=== PATIENT | female | born 1990 | race Two or more races ===

== ENCOUNTER 2016-04-29 10:04 | Emergency (ER) | payer OTHER ==
[2016-04-29] MEDS ORDERED: MAG HYDROX/AL HYDROX/SIMETH 30 ML, HYOSCYAMINE ELIXIR 10 ML, CIMETIDINE HCL 300 MG PO STA ×3 (10:35)
--- NOTE | 2016-04-29 10:48 | ED ---
General Adult HPI - General Chief complaint: Abdominal Pain Stated complaint: Stomach pain Time Seen by Provider: 04/29/16 10:24 Source: patient, family, RN notes reviewed, old records reviewed Mode of arrival: ambulatory Limitations: no limitations - History of Present Illness Initial comments: Chief complaint and history of present illness a 26-year-old female who is hearing her history through an american sign language interpreter. The patient has had subxiphoid area discomfort for 2 days. No nausea no vomiting no diarrhea. No change in appetite. Pain in the area increases with palpation decreases with Tylenol. Increases with deep breathing coughing and movement. - Related Data Home Medications Medication Instructions Recorded Confirmed Acetaminophen Tab [Tylenol Tab] 500 mg PO Q4H PRN 04/29/16 04/29/16 Previous Rx's Medication Instructions Recorded Famotidine [Pepcid] 20 mg PO DAILY #30 tablet 04/29/16 Allergies Allergy/AdvReac Type Severity Reaction Status Date / Time No Known Allergies Allergy Verified 06/28/15 10:40 Review of Systems ROS Statement: Those systems with pertinent positive or pertinent negative responses have been documented in the HPI. Review of systems no visual acuity changes denies any headache chest pain reproducible with palpation and movement of the xiphoid region. No GI/ problems. She also reports the discomfort slightly worse with spicy foods. No nausea no vomiting no diarrhea no change in color stool. No neuro deficits complained of. All systems were otherwise reviewed. Past medical problems significant for cholelithiasis and cholecystitis. Her surgeries include 3 C-sections and a gallbladder removed with ERCP last year. The patient's family history no cancers. Patient denies ALLERGIES nonsmoker, nondrinker. ROS Other: All systems not noted in ROS Statement are negative. Past Medical History Past Medical History: No Reported History History of Any Multi-Drug Resistant Organisms: None Reported Past Surgical History: Section, Cholecystectomy Past Anesthesia/Blood Transfusion Reactions: No Reported Reaction Past Psychological History: No Psychological Hx Reported Smoking Status: Never smoker Past Alcohol Use History: None Reported Past Drug Use History: None Reported General Exam - General Exam Comments Initial Comments: General: The patient is awake and alert, in no distress, and does not appear acutely ill. Discomfort comes and goes but is reproducible by taking a deep breath twisting turning palpating around xiphoid. It can be controlled while coughing by pushing just in a pressure on the lower sternum. Vital signs show temperature 98.0 pulse 79 respiratory rate 17 pulse ox 98% room air blood pressure 126/78. Minimally elevated systolic of 126 noted. The patient will be following up with her family physician as needed in the next 1-2 weeks. Eye: Pupils are equal, round and reactive to light, extra-ocular movements are intact ; there is normal conjunctiva bilaterally. No signs of icterus. Ears, nose, mouth and throat: There are moist mucous membranes and no oral lesions. Neck: The neck is supple, there is no tenderness , no anterior cervical lymphadenopathy. Cardiovascular: There is a regular rate and rhythm. No murmur, rub or gallop is appreciated. Respiratory: Lungs are clear to auscultation, respirations are non-labored, breath sounds are equal. No wheezes, stridor, rales, or rhonchi. Reproducible discomfort with palpation over the xiphoid region. Gastrointestinal: Soft, non-distended, non-tender abdomen without masses or organomegaly noted. There is no rebound or guarding present. No CVA tenderness. Bowel sounds are unremarkable. Back: There is no tenderness to palpation in the midline. There is no obvious deformity. No rashes noted. Musculoskeletal: Normal ROM, no tenderness, There is no pedal edema. There is no calf tenderness or swelling. Sensation intact. Neurological: No complaint of any weakness or neuro deficits none noted on exam. Skin: Skin is warm and dry and no rashes or lesions are noted. Limitations: no limitations Course Vital Signs 04/29/16 10:16 Temperature 98.0 F Pulse Rate 79 Respiratory 17 Rate Blood Pressure 126/78 O2 Sat by Pulse 98 Oximetry Medical Decision Making - Medical Decision Making Medical decision making; patient's white count 6.2 hemoglobin 12 hematocrit 37.9 , potassium 4.1 with a BUN 12 creatinine 0.56 and GFR greater than 60. Glucose 83. Amylase lipase within normal limits. X-ray of the chest was done and reviewed by radiologist entire report was reviewed his final impression is no acute coronary process. As read by Dr. Yared palafox x-ray of the abdomen was done and reviewed by radiologist entire report was reviewed his impression is no abnormal air-fluid levels or differential air fluid levels present. No free air is present. No mass effect is evident. Impression unremarkable abdomen. As read by Dr. Root The patient was given a GI cocktail emergency room does states she feels somewhat better. We discussed costochondritis as she has discomfort in the lower rib cage and xiphoid region. And it is reproducible. She also complains of symptoms of start with spicy foods. The pain the patient will be advised to use antacids on a regular basis, 8 frequent small meals. Stay away from greasy fatty foods or spicy foods. Take Pepcid daily. If problem persists to follow- up with family physician. - Lab Data Result diagrams: 04/29/16 11:06 04/29/16 11:06 Lab Results 04/29/16 04/29/16 Range/Units 11:06 11:06 WBC 6.2 (3.8-10.6) k/uL RBC 4.48 (3.80-5.40) m/uL Hgb 12.5 (11.4-16.0) gm/dL Hct 37.9 (34.0-46.0) % MCV 84.7 (80.0-100.0) fL MCH 27.9 (25.0-35.0) pg MCHC 32.9 (31.0-37.0) g/dL RDW 12.6 (11.5-15.5) % Plt Count 243 (150-450) k/uL Neutrophils % 58 % Lymphocytes % 33 % Monocytes % 4 % Eosinophils % 2 % Basophils % 1 % Neutrophils # 3.6 (1.3-7.7) k/uL Lymphocytes # 2.1 (1.0-4.8) k/uL Monocytes # 0.3 (0-1.0) k/uL Eosinophils # 0.1 (0-0.7) k/uL Basophils # 0.0 (0-0.2) k/uL Sodium 141 (137-145) mmol/L Potassium 4.1 (3.5-5.1) mmol/L Chloride 107 (98-107) mmol/L Carbon Dioxide 24 (22-30) mmol/L Anion Gap 10 mmol/L BUN 12 (7-17) mg/dL Creatinine 0.56 (0.52-1.04) mg/dL Est GFR (MDRD) Af Amer >60 (>60 ml/min/1.73 sqM) Est GFR (MDRD) Non-Af >60 (>60 ml/min/1.73 sqM) Glucose 83 (74-99) mg/dL Calcium 9.3 (8.4-10.2) mg/dL Total Bilirubin 0.4 (0.2-1.3) mg/dL AST 20 (14-36) U/L ALT 32 (9-52) U/L Alkaline Phosphatase 120 (38-126) U/L Total Protein 7.8 (6.3-8.2) g/dL Albumin 4.0 (3.5-5.0) g/dL Amylase 39 (30-110) U/L Lipase 89 (23-300) U/L Disposition Clinical Impression: Gastritis, Costochondritis, acute Disposition: HOME SELF-CARE Condition: Fair Instructions: Diet for Stomach Ulcers and Gastritis (ED), Gastritis (ED), Costochondritis (ED) Additional Instructions: Use Tylenol for pain. Take Pepcid to control stomach acid production. Use antacids such as Mylanta or Tums for immediate relief. Decrease irritating foods. Use Tylenol for pain. Follow-up family physician Prescriptions: Famotidine [Pepcid] 20 mg PO DAILY #30 tablet Time of Disposition: 12:01
[2016-04-29 11:27] LABS: Basophils % (A) 1 %; CH 28.1; CHCM 33.3; Eosinophils # (A) 0.1 k/uL (0-0.7); Eosinophils % (A) 2 %; HCT 37.9 % (34.0-46.0); HDW 2.83; HGB 12.5 gm/dL (11.4-16.0); Luc # (Auto) 0.15; Luc % (Auto) 2; Lymphocytes # (A) 2.1 k/uL (1.0-4.8); Lymphocytes % (A) 33 %; MCH 27.9 pg (25.0-35.0); MCHC 32.9 g/dL (31.0-37.0); MCV 84.7 fL (80.0-100.0); Monocytes # (A) 0.3 k/uL (0-1.0); Monocytes % (A) 4 %; Neutrophils # (A) 3.6 k/uL (1.3-7.7); Neutrophils % (A) 58 %; RBC 4.48 m/uL (3.80-5.40); RDW 12.6 % (11.5-15.5); WBC 6.2 k/uL (3.8-10.6); WBC (Perox) 6.29
[2016-04-29 11:34] LABS: ALT 32 U/L (9-52); AST 20 U/L (14-36); Alkaline Phosphatase 120 U/L (38-126); Amylase 39 U/L (30-110); Anion Gap 10 mmol/L; Blood Urea Nitrogen 12 mg/dL (7-17); Calcium 9.3 mg/dL (8.4-10.2); Carbon Dioxide 24 mmol/L (22-30); Chloride 107 mmol/L (98-107); Glucose 83 mg/dL (74-99); Non-African American GFR(MDRD) >60 (>60 ml/min/1.73 sqM); Potassium 4.1 mmol/L (3.5-5.1); Sodium 141 mmol/L (137-145); Total Bilirubin 0.4 mg/dL (0.2-1.3); Total Protein 7.8 g/dL (6.3-8.2)
--- NOTE | 2016-04-29 11:44 | XR ---
EXAMINATION TYPE: XR chest 2V DATE OF EXAM: 04/29/2016 11:40 AM COMPARISON: 06/27/2015 INDICATION: Abdomen pain lower chest pain for 3 days TECHNIQUE: Frontal and lateral views of the chest are obtained. FINDINGS: The heart size is normal. The pulmonary vasculature is normal. The lungs are clear. IMPRESSION: 1. No acute pulmonary process.
--- NOTE | 2016-04-29 11:45 | XR ---
EXAMINATION TYPE: XR abdomen 2V DATE OF EXAM: 04/29/2016 11:40 AM COMPARISON: NONE INDICATION: Abdomen pain TECHNIQUE: 2 view abdomen upright supine view FINDINGS: There is a normal bowel gas pattern. Psoas margins are normal. No organomegaly is present. Cholecystectomy clips are in the right upper quadrant. No abnormal air-fluid levels or differential air-fluid levels present. No free air is present. No mas s effect is evident. IMPRESSION: 1. Unremarkable Abdomen
[2016-04-29 12:35] VITALS: BP 107/57; PULSE 62; RESP 16; TEMP 98.7
== END 2016-04-29 12:35 | disposition home or self-care (01) ==
LOC: EC 10:04
DX: K29.70 Gastritis, unspecified, without bleeding (principal); M94.0 Chondrocostal junction syndrome [Tietze]
CPT/HCPCS: 36415; 71020; 74020; 80053; 82150; 83690; 84484; 85025; 99284